=== PATIENT | male | born 1985 | race Caucasian/White ===

== ENCOUNTER 2019-04-13 00:53 | Emergency (ER) | payer OTHER ==
[~2019-04-13] VITALS: Ht 160 cm; Wt 85.3 kg
[2019-04-13 00:55] VITALS: BP 141/74
--- NOTE | 2019-04-13 01:02 | NUR ---
PT AMBULATED TO BED #1
--- NOTE | 2019-04-13 01:08 | NUR ---
33 Y/O MALE C/O LT SHOULDER PAIN THAT RADIATES TO CHEST X 1.5 MONTHS. PT STATES PAIN GOT WORSE WHEN HE STOPPED WORKING OUT. 5/10 INTERMITTENT SHARP PAIN TO SHOULDER AND CHEST. DENIES SOB. PT STATES "I CAN FEEL MY HEART VEIN PUMPING SOMETIMES. RR EVEN AND UNLABORED, PT CALM AND PLESANT. PT SITTING IN BED POSITIONED FOR COMFORT. PT PLACED ON MONITOR. VSS. MEDHX: DENIES ALLERGIES: NKA
--- NOTE | 2019-04-13 01:38 | NUR ---
XRAY AT BEDSIDE
--- NOTE | 2019-04-13 01:40 | NUR ---
DR RODGERS AT BEDSIDE EXAMINING PT.
--- NOTE | 2019-04-13 02:21 | NUR ---
PT RESTING IN BED ON CELLPHONE, DENIES CHEST PAIN AT THIS TIME. STATES HIS SHOULDER STILL ACHES, DR RODGERS MADE AWARE. VSS. WILL CONTINUE TO MONITOR.
--- NOTE | 2019-04-13 03:49 | NUR ---
VISIBLE RISE AND FALL OF THE CHEST, PT LAYING WITH EYES CLOSED, AROUSABLE TO NAME. VSS. WILL CONTINUE TO MONITOR
[2019-04-13 04:13] VITALS: BP 138/72
== END 2019-04-13 04:14 | disposition home or self-care (01) ==
LOC: MED 00:53
DX: M25.512 Pain in left shoulder (principal)
CPT/HCPCS: 71045; 73030; 93005; 99283; Q0092

== ENCOUNTER 2022-01-11 00:18 | Emergency (ER) | payer OTHER ==
[~2022-01-11] VITALS: Ht 160 cm; Wt 85.7 kg
[2022-01-11 00:31] VITALS: BP 132/82
--- NOTE | 2022-01-11 00:33 | NUR ---
to lobby a/w bed ambulatory
--- NOTE | 2022-01-11 02:54 | NUR ---
RECEIVED IN BED 3 WITH C/O chest pain, since Friday. PT HAS BEEN TREATED FOR GERD, HAS TAKEN MEDS WITHOUT RELIEF
--- NOTE | 2022-01-11 02:54 | NUR ---
PT TAKEN TO ER BED 3
--- NOTE | 2022-01-11 03:52 | NUR ---
Patient being evaluated by physician at bedside.
[2022-01-11] MEDS ORDERED: IBUP-2213 PO (04:03)
[2022-01-11] MEDS ORDERED: OMEP40EC24 PO (04:03)
[2022-01-11 04:05] VITALS: BP 132/82
--- NOTE | 2022-01-11 04:05 | NUR ---
Patient discharged with v/s stable. Written and verbal after care instructions given and explained. Patient alert, oriented and verbalized understanding of instructions. Ambulatory with steady gait. All questions addressed prior to discharge. ID band removed. Patient advised to follow up with PMD. Rx of PRILOSEC & IBUPROFEN given. Patient educated on indication of medication including possible reaction and side effects. Opportunity to ask questions provided and answered.
== END 2022-01-11 04:05 | disposition home or self-care (01) ==
LOC: MED 00:18
DX: R07.89 Other chest pain (principal)
CPT/HCPCS: 93005; 99283

== ENCOUNTER 2022-03-11 22:00 | Emergency (ER) | payer OTHER ==
[~2022-03-11] VITALS: Ht 160 cm; Wt 81.6 kg
[~2022-03-11 22:00] MED LIST: IBUP-2213 PO; OMEP40EC24 PO
[2022-03-11 23:49] VITALS: BP 112/67
[2022-03-11 23:59] VITALS: BP 112/67
--- NOTE | 2022-03-11 23:59 | NUR ---
STUMP OF THE TREE FELL ON THE RIGHT FOOT 3 DAYS AGO. NKA NO MED HX
--- NOTE | 2022-03-12 01:48 | NUR ---
PT RETURN FROM XRAY
[2022-03-12] MEDS ORDERED: NAPR-54 PO (03:00)
--- NOTE | 2022-03-12 03:26 | NUR ---
Patient discharged with v/s stable. Written and verbal after care instructions given and explained. Patient verbalized understanding. Ambulatory with steady gait. All questions addressed prior to discharge. Advised to follow up with PMD.
== END 2022-03-12 03:26 | disposition home or self-care (01) ==
LOC: MED 22:00
DX: S90.31XA Contusion of right foot, initial encounter (principal); Z79.899 Other long term (current) drug therapy; W20.8XXA Other cause of strike by thrown, projected or falling object, initial encounter; Y93.89 Activity, other specified; Y92.89 Other specified places as the place of occurrence of the external cause; Y99.8 Other external cause status
CPT/HCPCS: 73630; 99283

== ENCOUNTER 2022-03-19 21:46 | Emergency (ER) | payer OTHER ==
[~2022-03-19] VITALS: Ht 160 cm; Wt 81.6 kg
[~2022-03-19 21:46] MED LIST changes: +NAPR-54 PO
[2022-03-19 22:28] VITALS: BP 117/70
[2022-03-20] MEDS ORDERED: IBUP-2213 PO (00:24)
[2022-03-20] MEDS ORDERED: KETOROLAC 15 MG/ML VIAL IM ONE (00:30)
[2022-03-20 01:01] VITALS: BP 118/70
== END 2022-03-20 01:01 | disposition home or self-care (01) ==
LOC: MED 21:46
DX: S90.31XA Contusion of right foot, initial encounter (principal); Z79.899 Other long term (current) drug therapy; W20.8XXA Other cause of strike by thrown, projected or falling object, initial encounter; Y93.89 Activity, other specified; Y92.89 Other specified places as the place of occurrence of the external cause; Y99.8 Other external cause status
CPT/HCPCS: 96372; 99283; J1885

== ENCOUNTER 2022-11-28 21:12 | Emergency (ER) | payer OTHER ==
[~2022-11-28] VITALS: Ht 160 cm; Wt 86.2 kg
[2022-11-28 21:35] VITALS: BP 130/82; PULSE 84; RESP 17; TEMP 97.5; O2SAT 98
[2022-11-28] MEDS ORDERED: FAMOTIDINE 20 MG TAB PO ONE (22:15)
[2022-11-28] MEDS ORDERED: ALUMINUM HYD/MAG/SIMETHICONE 30 ML UDC PO ONE (22:15)
[2022-11-28 22:35] LABS: BASOPHILS % (AUTO) 0.5 % (0.0-2.0); EOSINOPHILS # (AUTO) 0.1 K/uL (0-0.4); EOSINOPHILS % (AUTO) 1.3 % (0.0-4.0); HEMOGLOBIN 14.6 g/dL (12.0-18.0); LYMPHOCYTES # (AUTO) 1.4 K/uL (2.0-11.5); LYMPHOCYTES % (AUTO) 15.4 % (20.5-51.1); MEAN CORPUSCULAR HEMOGLOBIN 30 pg (27-31); MEAN CORPUSCULAR HGB CONC 33 g/dL (33-37); MEAN CORPUSCULAR VOLUME 91.5 fL (80-94); MONOCYTES % (AUTO) 11.7 % (1.7-9.3); NEUTROPHILS # (AUTO) 6.2 K/uL (1.8-7.7); NEUTROPHILS % (AUTO) 71.1 % (42.2-75.2); PLATELET COUNT (AUTO) 252 K/uL (140-450); RED BLOOD CELL COUNT(AUTO) 4.81 MIL/uL (4.20-6.10); RED CELL DISTRIBUTION WIDTH 13.4 % (11.6-13.7); WHITE BLOOD COUNT (AUTO) 8.8 K/uL (4.8-10.8)
[2022-11-28 22:51] LABS: ALBUMIN 3.6 g/dL (3.4-5.0); ANION GAP 11.2 (8-16); CALCIUM 8.6 mg/dL (8.5-10.1); POTASSIUM 4.2 mmol/L (3.5-5.1); TOTAL BILIRUBIN 0.6 mg/dL (0.0-1.0); TOTAL PROTEIN, SERUM 7.4 g/dL (6.4-8.2)
[2022-11-28] MEDS ORDERED: OMEP40EC23 PO (23:33)
[2022-11-28 23:42] VITALS: BP 127/78; PULSE 84; RESP 18; TEMP 97.5; O2SAT 99
== END 2022-11-28 23:42 | disposition home or self-care (01) ==
LOC: MED 21:12
DX: R10.13 Epigastric pain (principal); R11.0 Nausea; Z79.899 Other long term (current) drug therapy; Z79.1 Long term (current) use of non-steroidal anti-inflammatories (NSAID)
CPT/HCPCS: 36415; 80053; 83690; 85025; 99283

== ENCOUNTER 2023-05-28 01:24 | Emergency (ER) | payer OTHER ==
[~2023-05-28] VITALS: Ht 160 cm; Wt 86.2 kg
[~2023-05-28 01:24] MED LIST changes: +OMEP40EC23 PO
[2023-05-28 01:40] VITALS: BP 113/76; PULSE 74; RESP 17; TEMP 98; O2SAT 98
[2023-05-28 03:18] LABS: APPEARANCE,URINE CLEAR (CLEAR); BILIRUBIN,URINE NEGATIVE (NEGATIVE); BLOOD, URINE TRACE-I (NEGATIVE); COLOR,URINE YELLOW (YELLOW); LEUKOCYTE ESTERASE ,URINE NEGATIVE (NEGATIVE); NITRITE, URINE NEGATIVE (NEGATIVE); PROTEIN,URINE NEGATIVE (NEGATIVE); UGLUCOSE NEGATIVE (NEGATIVE)
[2023-05-28 03:19] LABS: BASOPHILS % (AUTO) 0.4 % (0.0-2.0); EOSINOPHILS # (AUTO) 0.3 K/uL (0-0.4); EOSINOPHILS % (AUTO) 3.3 % (0.0-4.0); HEMATOCRIT 45.4 % (36-52); HEMOGLOBIN 15.5 g/dL (12.0-18.0); LYMPHOCYTES # (AUTO) 2.1 K/uL (2.0-11.5); LYMPHOCYTES % (AUTO) 21.8 % (20.5-51.1); MEAN CORPUSCULAR HEMOGLOBIN 31 pg (27-31); MEAN CORPUSCULAR HGB CONC 34 g/dL (33-37); MEAN CORPUSCULAR VOLUME 90.9 fL (80-94); NEUTROPHILS # (AUTO) 6.2 K/uL (1.8-7.7); NEUTROPHILS % (AUTO) 64.5 % (42.2-75.2); PLATELET COUNT (AUTO) 251 K/uL (140-450); RED BLOOD CELL COUNT(AUTO) 4.99 MIL/uL (4.20-6.10); RED CELL DISTRIBUTION WIDTH 13.3 % (11.6-13.7); WHITE BLOOD COUNT (AUTO) 9.6 K/uL (4.8-10.8)
[2023-05-28 03:28] LABS: BACTERIA,URINE 10-30 (MOD) /HPF (None Seen); MUCUS,URINE 1+ /LPF (None Seen); SQUAMOUS EPITHELIAL CELL,UR 0-3 (FEW) /LPF (0-3 (FEW)); WBC,URINE 0-5 /HPF (0-5)
[2023-05-28 04:00] LABS: ANION GAP 13.1 (8-16); CALCIUM 8.8 mg/dL (8.5-10.1); CARBON DIOXIDE 25.9 mmol/L (21-32); CREATININE 0.9 mg/dL (0.6-1.3)
[2023-05-28 04:15] LABS: ALANINE AMINOTRANSFERASE 140 U/L (12-78); ALBUMIN 3.4 g/dL (3.4-5.0); ALKALINE PHOSPHATASE 94 U/L (50-136); AMYLASE 44 U/L (25-115); ASPARTATE AMINOTRANSFERASE 51 U/L (15-37); BILIRUBIN,DIRECT 0.1 mg/dL (0.0-0.3); LIPASE 46 U/L (16-77); TOTAL BILIRUBIN 0.4 mg/dL (0.0-1.0); TOTAL PROTEIN, SERUM 8.3 g/dL (6.4-8.2)
[2023-05-28 05:24] VITALS: BP 113/76; PULSE 74; RESP 17; TEMP 98; O2SAT 98
[2023-05-28] MEDS ORDERED: ESOM40EC PO (05:35)
== END 2023-05-28 05:24 | disposition home or self-care (01) ==
LOC: MED 01:24
DX: K21.9 Gastro-esophageal reflux disease without esophagitis (principal); Z79.899 Other long term (current) drug therapy
CPT/HCPCS: 36415; 76705; 80048; 80076; 81001; 82150; 83690; 84484; 85025; 99284